=== PATIENT | female | born 1985 | race Caucasian/White ===

== ENCOUNTER → 2024-05-30 18:49 | Outpatient (REF) | payer OTHER, SELFPAY | LOC: MRI 3T 18:49 | PROVIDERS: ATTENDING PHYSICIAN Surgery; FAMILY PHYSICIAN Family Medicine | DX: Z15.01 Genetic susceptibility to malignant neoplasm of breast (principal); Z15.02 Genetic susceptibility to malignant neoplasm of ovary; Z15.09 Genetic susceptibility to other malignant neoplasm | CPT/HCPCS: 77049; A9585 ==

== ENCOUNTER 2024-11-19 18:12 | Emergency (ER) | payer OTHER, SELFPAY ==
[2024-11-19 18:19] VITALS: BP 113/75
[2024-11-19 18:42] LABS: % Basophils 0.3 % (0-2); % Immature Granulocytes 0.3 % (0-0.5); % Lymphocytes 9.2 % (20.5-51.1); % Monocytes 6.4 % (1.7-9.3); % Neutrophils 83.8 % (42.2-75.2); Absolute Lymphocytes 0.6 10^3/uL (1.2-3.4); Absolute Monocytes 0.4 10^3/uL (0.1-0.6); Absolute Neutrophils 5.1 10^3/uL (1.4-6.5); Hematocrit 38.9 % (37.0-47.0); Hemoglobin 13.7 g/dL (12.0-16.0); Mean Corp Hgb Conc. 35.2 g/dL (33.0-37.0); Mean Corpuscular Hgb 30.4 pg (27.0-31.0); Mean Corpuscular Volume 86.3 fL (81.0-99.0); Mean Platelet Volume 8.8 fL (7.4-10.4); Nucleated Red Blood Cells % 0 %; Platelet Count 199 10^3/uL (130-400); Red Blood Cell Count 4.51 10^6/uL (4.20-5.40); Red Cell Dist. Width 12.1 % (11.5-14.5); White Blood Cell Count 6.1 10^3/uL (4.8-10.8)
[2024-11-19 18:50] LABS: COVID-19 Antigen Negative (Negative)
[2024-11-19 18:57] LABS: ALT (SGPT) 28 U/L (0-35); AST (SGOT) 36 U/L (14-36); Albumin 4.5 g/dl (3.5-5.0); Alkaline Phosphatase 74 U/L (38-126); Blood Urea Nitrogen 11 mg/dl (7-17); Calcium 9.2 mg/dl (8.4-10.2); Carbon Dioxide 18 mmol/L (22-30); Chloride 102 mmol/L (98-107); Glucose 109 mg/dl (70-99); Potassium 3.6 mmol/L (3.5-5.1); Sodium 134 mmol/L (135-145); Total Bilirubin 0.2 mg/dl (0.2-1.3); Total Protein 7.5 g/dl (6.3-8.2); eGFR > 60.00
--- NOTE | 2024-11-19 20:40 | ED.GENMED ---
History of Present Illness
General
Chief Complaint: Cold/Flu/URI Symptoms
Source: patient
Exam Limitations: none
Time Seen by Provider: 11/19/24 20:12
Nursing documentation reviewed up to this point in time: agreed with
History of Present Illness
History of Present Illness:
39 y/o F with no sig pmh
2 days sore throat, bodyaches, cough
today says she felt so bad, had a coughing fit and felt a little sob so she came in
she did talk to her PCP who ordered her tamiflu but pt has taken it a few years ago and vomited a lot so she didn't start it
she has not had any chest pain, vomiting, diarrhea, severe headache, neck stiffness, confusion
pt no longer feels sob
she took tylenol at 5 pm
Past History
Past History
ED Past Medical History: None
ED Past Surgical History: None
Social History
Tobacco: Non-smoker
Alcohol: None
Drug: None
Review of Systems
Review of Systems
Allergies reviewed?: Yes
All Other Systems: Not applicable
Phy Exam
Physical Exam
Physical Exam:
GENERAL: Alert , in no apparent distress
EYE: pupils equal and reactive
NECK: Supple
ENT: b/l TM s clear, pharynx erythematous but no tonsillar hypertrophy or exudates
CARDIAC:tachycardic no edema
LUNGS: Clear breath sounds bilaterally, no acute respiratory distress, no wheezes/rales/rhonchi, occ cough
ABDOMEN: Soft, without focal tenderness, no r/g, no cvat, normal bowel sounds
NEUROLOGICAL: Alert and oriented, no focal neuro deficits
SKIN: Warm and dry, skin intact.
MUSCULOSKELETAL: No edema, well perfused.
PSYCH: Normal and appropriate interaction.
Sepsis
Sepsis Screening
Sepsis Assessment: Sepsis Ruled Out
Sepsis Screen
Sepsis Screen: Sepsis Ruled Out
Date: 11/19/24
Time: 20:47
Course
Orders/Labs/Results
Orders:
Orders
11/19/24 18:21
Chest [CR Chest - 2 Views ] Urgent
Comment:
Reason For Exam: cough/sob
11/19/24 18:28
COVID-19 Antigen Urgent
Source: Nasal Swab
Complete Blood Count/With Diff Urgent
Comprehensive Metabolic Panel Urgent
Influenza A+B Rapid Molecular Urgent
DYLAN Source: Nasal Swab
Specimen Description:
Abnormal Lab Results
11/19/24
18:28
Absolute Lymphs (auto) 0.6 L 10^3/uL
(1.2-3.4)
Neutrophils % 83.8 H %
(42.2-75.2)
Lymphocytes % 9.2 L %
(20.5-51.1)
Sodium 134 L mmol/L
(135-145)
Carbon Dioxide 18 L mmol/L
(22-30)
Glucose 109 H mg/dl
(70-99)
11/19/24 18:28
11/19/24 18:28
Vital Signs
Initial and Last Documented VS:
Initial Vital Signs
Temp Pulse Resp BP Pulse Ox
38.1 C H 116 22 113/75 98
11/19/24 18:19 11/19/24 18:19 11/19/24 18:19 11/19/24 18:19 11/19/24 18:19
Last Documented Vital Signs
Temp Pulse Resp BP Pulse Ox
38.1 C H 116 22 113/75 98
11/19/24 18:19 11/19/24 18:19 11/19/24 18:19 11/19/24 18:19 11/19/24 20:18
MDM/Problems Addressed
Differential Diagnosis Includes:
flu, fever, sepsis, pneumonia
MDM/Problems Addressed:
39 y/o F
no pmh
uri sxs x 2 days
flu +
felt really bad today with high fever and sob
she now feels much better though still has fever 102
no meds since 5 pm
2044: occ cough, mild tachycardia but temp 102, pharynx erythematous, speakign full sentences, no tachypnea, nontoxic papearing
cxr indep reviewed by me and neg
labs reassuring
d/c home with motrin
offered her to stay until fever broke but pt would like to go home
*Critical Care Note
Total Time (30-74mins, 75-104mins- exclusive of procedures): Not Applicable
ED Attending Note
-
Portions of this chart may have been created with voice recognition software.� Occasional wrong word or��sound alike� substitutions may have occurred due to the inherent limitations of voice recognition software.
Discharge Plan
Departure
Patient Disposition: Home (Routine Discharge)
Date of Disposition: 11/19/24
Time of Disposition: 20:46
Patient with high blood pressure during this ER visit?: No
Covid-19: Not Applicable
Discharge Problem:
Influenza A
Instructions: Flu in adults - ED discharge instructions
Prescriptions:
No Action
PNV cmb#95-ferrous fumarate-FA [] 1 EACH tablet
1 ea PO Daily
acetaminophen 325 MG tablet
650 mg PO Q4HPRN PRN (Reason: mild pain) 0RF
sennosides-docusate sodium 1 TABLET tablet
1 tab PO DAILYPRN PRN (Reason: constipation) 0RF
ibuprofen 600 MG tablet
400 mg PO Q4HPRN PRN (Reason: moderate pain/cramps) 0RF
Activity Restrictions/Additional Instructions:
YOU HAVE THE FLU
TAKE TYLENOL EVERY 6 HOURS MOTRIN EVERY 8 HOURS NEEDED FOR FEVER/ACHES
DRINK FLUIDS
TAKE COUGH MEDS NEEDED
RETURN FOR: SEVERE SYMPTOMS, WORSENING SHORTNESS OF BREATH, CONFUSION, WEAKNESS O RANY CONCERNS.
Interventions
Interventions:
*Risk Screen - Suicide Last Done: 11/19/24 18:19
*General Assessment Last Done: 11/19/24 18:19
*Neglect/Abuse Screening Last Done: 11/19/24 18:19
*ED COVID-19 Vaccine History Last Done: 11/19/24 20:18
ED- Pulmonary Assessment Last Done: 11/19/24 20:18
Discharge Date and Time
Print Language: CENTRAL AFRICAN
[2024-11-19 20:47] VITALS: BP 106/70
[2024-11-19] MEDS: MOTRIN 600 MG PO (20:52)
[2024-11-19 21:04] VITALS: BP 106/72
== END 2024-11-19 21:05 | disposition home or self-care (01) ==
LOC: EMR 18:12
PROVIDERS: Registered Nurse; EMERGENCY PHYSICIAN Emergency Medicine; FAMILY PHYSICIAN Internal Medicine
DX: J10.1 Influenza due to other identified influenza virus with other respiratory manifestations (principal); R00.0 Tachycardia, unspecified; J02.9 Acute pharyngitis, unspecified; Z11.52 Encounter for screening for COVID-19
CPT/HCPCS: 99283; 71046; 80053; 85025; 87502; 87811

== ENCOUNTER → 2025-02-04 15:49 | Outpatient (REF) | payer OTHER, SELFPAY | LOC: MRI 3T 15:49 | PROVIDERS: ATTENDING PHYSICIAN Surgery; FAMILY PHYSICIAN Nurse Practitioner | DX: R92.8 Other abnormal and inconclusive findings on diagnostic imaging of breast (principal); N63.20 Unspecified lump in the left breast, unspecified quadrant; Z91.89 Other specified personal risk factors, not elsewhere classified | CPT/HCPCS: 77049; A9585 ==

== ENCOUNTER → 2025-03-12 15:01 | Outpatient (REF) | payer OTHER, SELFPAY | LOC: WDC 15:01 | PROVIDERS: ATTENDING PHYSICIAN Surgery | DX: N63.10 Unspecified lump in the right breast, unspecified quadrant (principal); R92.8 Other abnormal and inconclusive findings on diagnostic imaging of breast | CPT/HCPCS: 76642 ==

== ENCOUNTER → 2025-09-30 10:45 | Outpatient (REF) | payer OTHER, SELFPAY | LOC: MRI 3T 10:45 | PROVIDERS: ATTENDING PHYSICIAN Surgery; FAMILY PHYSICIAN Hospitalist | DX: Z91.89 Other specified personal risk factors, not elsewhere classified (principal); Z15.01 Genetic susceptibility to malignant neoplasm of breast; Z15.09 Genetic susceptibility to other malignant neoplasm | CPT/HCPCS: 77049; A9585 ==